=== PATIENT | female | born 1935 | race Caucasian/White ===

== ENCOUNTER 2020-05-03 16:09 | Inpatient (IN) | payer MEDICARE ==
[~2020-05-03] VITALS: Ht 157.5 cm; Wt 88.2 kg
[2020-05-03] MEDS ORDERED: SODIUM CHLORIDE FLUSH 10ML SYR IVF ONE (16:30)
--- NOTE | 2020-05-03 16:52 | NUR ---
PT BACK FROM IMAGING. ERMD AT BEDSIDE FOR ASSESSMENT.
--- NOTE | 2020-05-03 17:46 | NUR ---
PT URINE COLLECTED, SENT TO LAB.
[2020-05-03 17:51] LABS: MEAN CORPUSCULAR HEMOGLOBIN 32.4 pg (27.0-34.8); MEAN CORPUSCULAR HGB CONC 34.1 g/dL (32.4-35.8); MEAN PLATELET VOLUME 9.7 fL (7.4-10.4); PLATELET COUNT 260 x10^3/uL (130-400); RED BLOOD COUNT 2.55 x10^6/uL (3.82-5.3)
[2020-05-03 17:54] LABS: ALBUMIN 2.1 g/dL (3.4-5.0); ANION GAP 13 mmol/L (5-15); CALCIUM 8.7 mg/dL (8.5-10.1); CHLORIDE 105 mmol/L (98-107); INTERNATIONAL NORMALIZED RATIO 1.18 (0.93-1.1); PROTHROMBIN TIME 12.6 Seconds (9.6-11.5)
--- NOTE | 2020-05-03 17:54 | NUR ---
PT RESTING IN BED, NO DISTRESS. PT AWAITING ALL RESULTS. PT REMAINS ON MONITORS, VSS. CONT TO MONITOR.
[2020-05-03 18:02] LABS: MICROSCOPIC INDICATED
[2020-05-03 18:09] LABS: ALANINE AMINOTRANSFERASE 134 U/L (12-78); ALKALINE PHOSPHATASE 1463 U/L (45-117); BILIRUBIN,TOTAL 4.5 mg/dL (0.2-1.0); TOTAL PROTEIN 6.5 g/dL (6.4-8.2)
--- NOTE | 2020-05-03 18:11 | NUR ---
CRITICAL LABS REPORTED TO DR. HERRERA.
[2020-05-03 18:13] LABS: MD YES
[2020-05-03] MEDS ORDERED: NEOMYCIN SULFATE 500 MG TABLET PO ONE (18:13)
[2020-05-03] MEDS ORDERED: LACTULOSE 20 GM/30 ML UDC PO ONE (18:13)
[2020-05-03] MEDS ORDERED: DEXTROSE 50%, 50ML SYRINGE ONE (18:20)
[2020-05-03] MEDS ORDERED: CALCIUM CHLORIDE 10%, 10ML SYR ONE (18:20)
[2020-05-03] MEDS ORDERED: INSULIN SINGLE DOSE, ER ONE (18:21)
[2020-05-03] MEDS ORDERED: DEXTROSE 50%, 50ML SYRINGE IVPush ONE (18:30)
[2020-05-03] MEDS ORDERED: CALCIUM CHLORIDE 10%, 10ML SYR IVPush ONE (18:30)
[2020-05-03] MEDS ORDERED: INSULIN REGULAR 100 UNITS/ML, 3ML VIAL IVPush ONE (18:30)
--- NOTE | 2020-05-03 18:38 | NUR ---
PT MEDICATED PER ORDERS FOR K+ OF 6.5. US AT BEDSIDE. PT REMAINS ON MONITORS, VSS. DAUGHTER AT BEDSIDE. CONT TO MONITOR.
[2020-05-03 18:43] LABS: CHLORIDE,URINE RANDOM 12 mmol/L; POTASSIUM,URINE RANDOM 75 mmol/L
[2020-05-03 18:51] LABS: SODIUM,URINE RANDOM < 5 mmol/L
--- NOTE | 2020-05-03 18:56 | NUR ---
REPORT RECIEVED FROM MARTINE PERSAUD. ULTRASOUND AND DR. TALAMANTES AT BEDSIDE
--- NOTE | 2020-05-03 18:58 | NUR ---
REPORT TO ZULMA FARLEY.
[2020-05-03] MEDS ORDERED: LABETALOL 5MG/ML, 20ML IVPush PRN (19:00)
[2020-05-03] MEDS ORDERED: ONDANSETRON 2MG/ML, 2ML IVPush PRN (19:00)
[2020-05-03] MEDS ORDERED: CEFTRIAXONE PMX 1GM/50ML 50 ML ONE (19:02)
[2020-05-03] MEDS: CEFTRIAXONE PMX 1GM/50ML 50 ML IV SCH (19:13)
--- NOTE | 2020-05-03 19:19 | NUR ---
pt medicated per emar, abx hubng after bc
[2020-05-03 19:27] LABS: BAND#(MANUAL) 0.73 x10^3/uL; BANDS%(MANUAL) 4 % (0-7); LYMPH#(MANUAL) 0.73 x10^3/uL (1-3.4); LYMPHS% (MANUAL) 4 % (22-44); MONOS#(MANUAL) 0.36 x10^3/uL (0.3-2.7); MONOS% (MANUAL) 2 % (2-9); SEG#(MANUAL) 16.38 x10^3/uL (1.8-6.8); SEGS% (MANUAL) 90 % (42-75)
[2020-05-03 19:28] LABS: ANISOCYTOSIS 1+
[2020-05-03 19:30] LABS: HYPOCHROMIA 1+; POLYCHROMASIA 1+
[2020-05-03] MEDS ORDERED: PHARMACY MAY ADJ FOR RENAL FX MC PRN (19:30)
[2020-05-03 19:31] LABS: TARGET CELLS 1+
[2020-05-03 19:32] LABS: <PLATELET ESTIMATE> ADEQUATE; <PLT MORPHOLOGY> NORMAL PLT MORPH
--- NOTE | 2020-05-03 19:36 | NUR ---
att x1. mona cleaning will call back. pt and daughter aware of poc, unable to state med rec at this time, daughter states she will call floor when she gets home
[2020-05-03] MEDS ORDERED: ONDANSETRON 2MG/ML, 2ML ONE (19:40)
--- NOTE | 2020-05-03 20:39 | NUR ---
report given to hermila dunn
--- NOTE | 2020-05-03 21:09 | NUR ---
IV ON PT WAS INFULTRATED, ATTEMPTED IV X5 AND UNSUCCESFUL. REPORT GIVE, ANOTHER RN AT BEDSIDE FOR ULTRASOUND IV.
[2020-05-03 21:49] VITALS: BP 127/73
[2020-05-03 21:57] VITALS: BP 127/73
[2020-05-03] MEDS: SODIUM BICARBONATE 8.4% 150 MEQ in DEXTROSE 5% 1,000 ML IV SCH (22:27)
[2020-05-03] MEDS: HEPARIN 5,000 UNITS/ML, 1ML SQ SCH (22:39)
[2020-05-03] MEDS: RIFAXIMIN 550 MG TABLET PO SCH (22:40)
[2020-05-03] MEDS: METRONIDAZOLE PMX 500MG/100ML 100 ML IV SCH (22:41)
[2020-05-04] MEDS: MORPHINE SULFATE 4 MG/ML, 1ML IVPush PRN ×3 (00:22→22:00)
[2020-05-04 00:49] VITALS: BP 130/73
[2020-05-04] MEDS: SODIUM ZIRCONIUM CYCLOSILICATE 10 GM PO SCH ×2 (01:00→08:00)
[2020-05-04] MEDS: HEPARIN 5,000 UNITS/ML, 1ML SQ SCH ×2 (03:00→11:07)
[2020-05-04] MEDS: METRONIDAZOLE PMX 500MG/100ML 100 ML IV SCH ×3 (05:24→21:58)
[2020-05-04] MEDS: SODIUM BICARBONATE 8.4% 150 MEQ in DEXTROSE 5% 1,000 ML IV SCH (07:18)
[2020-05-04] MEDS: RIFAXIMIN 550 MG TABLET PO SCH ×2 (08:00→22:00)
[2020-05-04 08:33] LABS: MEAN CORPUSCULAR HEMOGLOBIN 33.1 pg (27.0-34.8); MEAN CORPUSCULAR HGB CONC 34.1 g/dL (32.4-35.8); MEAN PLATELET VOLUME 9.3 fL (7.4-10.4); PLATELET COUNT 223 x10^3/uL (130-400); RED BLOOD COUNT 2.48 x10^6/uL (3.82-5.3); RED CELL DISTRIBUTION WIDTH 15.2 % (9.6-15.2)
[2020-05-04 08:43] LABS: ALANINE AMINOTRANSFERASE 126 U/L (12-78); ANION GAP 13 mmol/L (5-15); CALCIUM 8.7 mg/dL (8.5-10.1); CHLORIDE 104 mmol/L (98-107); CREATININE 4.37 mg/dL (0.55-1.02); IRON LEVEL 90 mcg/dL (50-170)
[2020-05-04 08:57] LABS: % IRON SATURATION 46 % (20-55); ALKALINE PHOSPHATASE 1258 U/L (45-117); BILIRUBIN,TOTAL 4.3 mg/dL (0.2-1.0); CREATINE KINASE, TOTAL 311 U/L (26-192); TOTAL IRON BINDING CAPACITY 194 mcg/dL (250-450); TOTAL PROTEIN 6.2 g/dL (6.4-8.2)
[2020-05-04 09:03] VITALS: BP 118/78
[2020-05-04 09:05] LABS: MD YES
[2020-05-04 09:07] LABS: <PLATELET ESTIMATE> ADEQUATE; <PLT MORPHOLOGY> NORMAL PLT MORPH; ANISOCYTOSIS 1+; BAND#(MANUAL) 0.16 x10^3/uL; BANDS%(MANUAL) 1 % (0-7); HYPOCHROMIA 1+; LYMPHS% (MANUAL) 9 % (22-44); METAMYELOCYTES# (MANUAL) 0.16 x10^3/uL (0-0); METAMYELOCYTES% (MANUAL) 1 % (0-1); MONOS#(MANUAL) 0.16 x10^3/uL (0.3-2.7); MONOS% (MANUAL) 1 % (2-9); POLYCHROMASIA 1+; SEG#(MANUAL) 13.64 x10^3/uL (1.8-6.8); SEGS% (MANUAL) 88 % (42-75)
[2020-05-04 09:08] LABS: TARGET CELLS 1+
[2020-05-04 14:32] VITALS: BP 103/67
[2020-05-04] MEDS: CEFTRIAXONE PMX 1GM/50ML 50 ML IV SCH (18:00)
[2020-05-04 19:43] VITALS: BP 106/68
[2020-05-04] MEDS ORDERED: ACETAMINOPHEN 325 MG TABLET ONE (22:34)
[2020-05-04] MEDS ORDERED: ACETAMINOPHEN 325 MG TABLET PO PRN (23:00)
[2020-05-05 00:51] VITALS: BP 102/61
[2020-05-05] MEDS: METRONIDAZOLE PMX 500MG/100ML 100 ML IV SCH ×3 (06:00→23:29)
[2020-05-05 06:45] LABS: BASOPHILS % (AUTO) 0 % (0-1); EOSINOPHILS % (AUTO) 0 % (1-7); LYMPHOCYTES % (AUTO) 7 % (22-44); MEAN CORPUSCULAR HEMOGLOBIN 32.4 pg (27.0-34.8); MEAN CORPUSCULAR HGB CONC 33.4 g/dL (32.4-35.8); MEAN PLATELET VOLUME 9.4 fL (7.4-10.4); MONOCYTES % (AUTO) 7 % (2-9); NEUTROPHILS % (AUTO) 86 % (42-75); PLATELET COUNT 273 x10^3/uL (130-400); RED BLOOD COUNT 2.26 x10^6/uL (3.82-5.3); RED CELL DISTRIBUTION WIDTH 15.5 % (9.6-15.2)
[2020-05-05 06:53] LABS: INTERNATIONAL NORMALIZED RATIO 1.35 (0.93-1.1); PROTHROMBIN TIME 14.4 Seconds (9.6-11.5)
[2020-05-05 06:58] LABS: ALBUMIN 1.9 g/dL (3.4-5.0); ANION GAP 13 mmol/L (5-15); CALCIUM 8.3 mg/dL (8.5-10.1); CHLORIDE 104 mmol/L (98-107)
[2020-05-05 07:07] VITALS: BP 106/67
[2020-05-05 07:13] LABS: ALANINE AMINOTRANSFERASE 111 U/L (12-78); ALKALINE PHOSPHATASE 1214 U/L (45-117); BILIRUBIN,TOTAL 3.7 mg/dL (0.2-1.0); CREATININE 4.33 mg/dL (0.55-1.02); TOTAL PROTEIN 5.7 g/dL (6.4-8.2)
[2020-05-05 07:15] LABS: MD SCAN
[2020-05-05] MEDS ORDERED: FENTANYL PF 100 MCG/2ML ONE (09:34)
[2020-05-05] MEDS ORDERED: MIDAZOLAM 1 MG/ML, 5ML ONE (09:34)
[2020-05-05] MEDS ORDERED: FLUMAZENIL 0.1 MG/1 ML, 5ML ONE (09:34)
[2020-05-05] MEDS ORDERED: NALOXONE 1 MG/ML, 2ML ONE (09:34)
[2020-05-05] MEDS: RIFAXIMIN 550 MG TABLET PO SCH ×2 (11:01→20:52)
[2020-05-05 11:10] VITALS: BP 100/70
[2020-05-05 12:10] VITALS: BP 93/61
[2020-05-05] MEDS ORDERED: SODIUM CHLORIDE 0.9% 1,000 ML IV ONE (12:30)
[2020-05-05 13:47] VITALS: BP 90/60
[2020-05-05] MEDS: CEFTRIAXONE PMX 1GM/50ML 50 ML IV SCH (20:32)
[2020-05-05 20:33] VITALS: BP 81/52
[2020-05-06 01:27] VITALS: BP 79/53
[2020-05-06] MEDS: METRONIDAZOLE PMX 500MG/100ML 100 ML IV SCH ×2 (06:39→14:27)
[2020-05-06 08:28] VITALS: BP 72/54
[2020-05-06] MEDS: RIFAXIMIN 550 MG TABLET PO SCH ×2 (08:31→21:25)
[2020-05-06] MEDS ORDERED: D5%-0.9% NACL 1,000 ML IV SCH (09:00)
[2020-05-06] MEDS ORDERED: SENNOSIDES 8.6 MG TABLET PO PRN (11:00)
[2020-05-06] MEDS ORDERED: DOCUSATE 100 MG CAPSULE PO PRN (11:00)
[2020-05-06 13:20] VITALS: BP 92/64
[2020-05-06 19:09] VITALS: BP 90/53
[2020-05-06] MEDS: CEFTRIAXONE PMX 1GM/50ML 50 ML IV SCH (20:03)
== END 2020-05-07 00:10 | disposition expired | DRG 435 ==
LOC: ED 18:09 → EDIP 18:15 → SUATTDRO 18:34 → ED 19:34 → 4EST 21:37 → 4NW 05-05 16:40
PROVIDERS: ADMIT Internal Medicine; ATTEND Internal Medicine
PROC: 0FB13ZX Excision of Right Lobe Liver, Percutaneous Approach, Diagnostic (ICD-10-PCS; principal; 2020-05-05)
DX: C22.9 Malignant neoplasm of liver, not specified as primary or secondary (principal); K72.00 Acute and subacute hepatic failure without coma; N17.9 Acute kidney failure, unspecified; E87.2 Acidosis; D72.829 Elevated white blood cell count, unspecified; E87.5 Hyperkalemia; H54.7 Unspecified visual loss; I10 Essential (primary) hypertension; H35.30 Unspecified macular degeneration; D63.0 Anemia in neoplastic disease; Z66 Do not resuscitate; Z51.5 Encounter for palliative care; Z80.0 Family history of malignant neoplasm of digestive organs; Z82.0 Family history of epilepsy and other diseases of the nervous system; Z85.05 Personal history of malignant neoplasm of liver; Z63.5 Disruption of family by separation and divorce; Z81.8 Family history of other mental and behavioral disorders
CPT/HCPCS: 36415; 47000; 70450; 71045; 76700; 77012; 80053; 80074; 81001; 82140; 82306; 82436; 82550; 82570; 82962; 83540; 83550; 83605; 83970; 84133; 84300; 84443; 85014; 85018; 85025; 85610; 85730; 87040; 87086; 88307; 93005; 96374; 96375; 99156; 99285; 99291; G0378; J0696; J1644; J1815; J2250; J2405; J3010; J7042; J7070; J2270; J2310; J7030